=== PATIENT | female | born 1980 | race Caucasian/White ===

== ENCOUNTER 2016-05-21 08:49 | Emergency (ER) ==
[2016-05-21 08:54] VITALS: BP 106/69; TEMP 97; BMI 24.3
== END 2016-05-21 09:07 | disposition left against medical advice (07) ==
LOC: ED 08:49
DX: R05 Cough (principal); R52 Pain, unspecified; R09.89 Other specified symptoms and signs involving the circulatory and respiratory systems; R50.9 Fever, unspecified
CPT/HCPCS: 87651; 87804; 87880

== ENCOUNTER 2016-05-21 13:13 | Outpatient (CLI) ==
[2016-05-21 08:54] VITALS: BMI 24.3
[2016-05-21 15:57] LABS: FLU INTERNAL QC INTERNAL QC VALID; RAPID FLU A NEGATIVE (NEGATIVE)
[2016-05-22 10:33] LABS: RAPID FLU B POSITIVE (NEGATIVE)
== END 2016-05-21 13:14 | disposition home or self-care (01) ==
LOC: LAB 13:13
PROVIDERS: ATTEND Nurse Practitioner Family
DX: R05 Cough (principal); R50.9 Fever, unspecified
CPT/HCPCS: 87651; 87804; 87880

== ENCOUNTER 2016-08-02 07:34 | Emergency (ER) ==
[2016-08-02 07:34] VITALS: BMI 24.3
[2016-08-02 07:48] VITALS: BP 130/83; TEMP 98.4
--- NOTE | 2016-08-02 07:53 | ED.PDOC ---
General ED Provider: Dr. EMILY STEPHENSON JR Chief Complaint: Tooth Problem Stated Complaint: states she broke off tooth yesterday. upper back tooth. C/O pain that radiates to left ear, can't hear out of left ear and has ear pain.[End ]98.4 76 16 98% 130/83 09/24 HYSTERECTOMY 2011, Tubal, , breast augmentation, right foot surgery (bone spur)[End]Presents to the ED with c/o right upper tooth pain, cracked off yesterday eating a jolly rancher.[End]c/o pain eft upper tooth. cracked yesterday. Noted chipped area. Also c/o left earache and decreased hearing.[End] Time Seen by Physician: 07:53 Mode of Arrival: Walk-In Information Source: Patient Exam Limitations: No limitations Primary [facility] Nursing and Triage Documentation Reviewed and Agree: No Review of Systems - Review Of Systems Constitutional: Reports: Malaise Eyes: Reports: No symptoms Ears, Nose, Mouth, Throat: Reports: Ear pain, Mouth pain Respiratory: Reports: No symptoms Cardiac: Reports: No symptoms GI: Reports: No symptoms : Reports: No symptoms Musculoskeletal: Reports: No symptoms Skin: Reports: No symptoms Neurological: Reports: No symptoms Endocrine: Reports: No symptoms Hematologic/Lymphatic: Reports: No symptoms All Other Systems: Other Past Medical History - Past Medical History Previously Healthy: Yes Endocrine: Reports: None Cardiovascular: Reports: None Respiratory: Reports: None Hematological: Reports: None Gastrointestinal: Reports: None Genitourinary: Reports: None Neuro/Psych: Reports: None Musculoskeletal: Reports: None Cancer: Reports: None Last Menstrual Period: 2011 Other Pertinent Past Medical History: right upper root canal, left upper posterior (2nd) molar tender irregular, - Surgical History General Surgical History: Reports: None, Hysterectomy (HYSTERECTOMY 2012, Tubal , , breast augmentation, right foot surgery (bone spur)), Tubal ligation, , Orthopedic (right foot surgery (bone spur)), Other (breast augmentation) - Family History Family History: Reports: Unknown - Social History Smoking Status: Current every day smoker Hx Substance Use: No Alcohol Screening: None - Immunizations Tetanus Shot up to Date: Yes Physical Exam - Physical Exam Appearance: Well-appearing Pain Distress: Moderate Eyes: LAMONTE, EOMI, Conjunctiva clear ENT: Nose normal, Oropharynx normal (left tooth pain lef tear retraction with possible cholesteatoma) Neck: Supple Respiratory: Airway patent, Breath sounds clear, Breath sounds equal, Respirations nonlabored Cardiovascular: RRR, Pulses normal, No rub, No murmur (on exam) Musculoskeletal: Normal strength, ROM intact, No edema, No calf tenderness Skin: Warm, Dry, Normal color Neurological: Sensation intact, Motor intact, Reflexes intact, Cranial nerves intact, Alert, Oriented Psychiatric: Affect appropriate, Mood appropriate Critical Care Note - Critical Care Note Total Time (mins): 0 Course - Course Vital Signs: Temp Pulse Resp BP Pulse Ox 08/02/16 07:34 98.4 F 76 16 130/83 98 Departure - Departure Time of Disposition: 08:06 Disposition: HOME SELF-CARE Discharge Problem: Toothache Tooth fracture Qualifiers: Encounter type: initial encounter Fracture type: open Qualifier Code: (S02.5XXB ) Fracture of tooth (traumatic), initial encounter for open fracture Instructions: Acute Dental Trauma (ED), Toothache (ED), Earache (ED) Condition: Good Pt referred to PMD for follow-up: Yes Additional Instructions: would take antihistamine for one week for ear recheck PMD consider ENT evaluation for left ear follow up with dentist as soon as possible for tooth may need to consider extraction- follow only dentist recommendations Prescriptions: Hydrocodone Bit/Acetaminophen [Ehrhardt 5-325] 1 - 2 tab PO Q6HR PRN #12 tablet PRN Reason: pain Naproxen [Naprosyn] 500 mg PO Q12HR PRN #30 tablet PRN Reason: PAIN Loratadine/Pseudoephedrine [Claritin-D 12 Hour Tablet] 1 each PO BID PRN #60 tab.er.12h PRN Reason: Allergy Symptoms Penicillin V Potassium 500 mg PO QID #28 tablet Allergies/Adverse Reactions: Allergies codeine Allergy (Severe, Verified 08/02/16 07:45) hives tramadol Allergy (Severe, Verified 08/02/16 07:45) Unknown Seizure Home Medications: Ambulatory Orders Hydrocodone Bit/Acetaminophen [Ehrhardt 5-325] 1 - 2 tab PO Q6HR PRN #12 tablet Loratadine/Pseudoephedrine [Claritin-D 12 Hour Tablet] 1 each PO BID PRN #60 tab.er.12h 08/02/16 Naproxen [Naprosyn] 500 mg PO Q12HR PRN #30 tablet 08/02/16 Penicillin V Potassium 500 mg PO QID #28 tablet 08/02/16
== END 2016-08-02 08:20 | disposition home or self-care (01) ==
LOC: ED 07:34
DX: S02.5XXB Fracture of tooth (traumatic), initial encounter for open fracture (principal); H92.02 Otalgia, left ear; F17.210 Nicotine dependence, cigarettes, uncomplicated
CPT/HCPCS: 99282